=== PATIENT | female | born 1995 | race African-American/Black ===

== ENCOUNTER 2016-07-03 16:54 | Emergency (ER) ==
[2016-07-03 17:43] LABS: URINE SOURCE CLEAN CATCH
[2016-07-03 18:12] LABS: BILIRUBIN URINE NEGATIVE (NEGATIVE); BLOOD URINE NEGATIVE (NEGATIVE); CLARITY SL. CLOUDY (CLEAR); COLOR YELLOW; GLUCOSE URINE NEGATIVE (NEGATIVE); LEUKOCYTES URINE 2+ (NEGATIVE); NITRITE URINE NEGATIVE (NEGATIVE); PROTEIN URINE TRACE mg/dL (NEGATIVE); SP GRAVITY URINE 1.015; UROBILINOGEN URINE 1+(1 mg/dL)
[2016-07-03 18:32] LABS: URINE CULTURE PL NEEDED? YES; URINE EPITHELIAL CELLS >10 /HPF (<10); URINE WBC <10 /HPF (<10)
[2016-07-03 18:33] LABS: URINE CAST NONE SEEN /LPF; URINE CRYSTAL NONE SEEN /HPF
--- NOTE | 2016-07-03 19:46 | PROVIDER DOCUMENTATION ---
HPI-Female /OB/Breast - General Source: reports: patient - History of Present Illness-Female /OB Does patient report she is ?: Yes Location of complaint: reports: LLQ Radiation: reports: none Quality of Pain: reports: aching Severity in ED: reports: mild Onset/Duration: reports: last night Timing: reports: still present Context/Activities at Onset: reports: none Vaginal Symptoms: reports: no symptoms Vaginal Bleeding Amount: None Urinary Symptoms: reports: no symptoms Related Symptoms: reports: no symptoms Leakage of Fluid: none Associated Symptoms: reports: cough, nausea, vomiting, other (congestion) Similar Symptoms Previously?: No Recently seen or treated by another doctor?: No <Kaci Rubin - Last Filed: 07/03/16 20:47> <Katja Segura - Last Filed: 07/03/16 20:52> - General Chief Complaint: Nausea/Vomiting Stated Complaint: VOMITING/?? WEEKS PREG Time Seen by Provider: 07/03/16 17:59 Allergies/Adverse Reactions: Patient Allergies Allergy/AdvReac Type Severity Reaction Status Date / Time No Known Allergies Allergy Verified 07/03/16 17:29 - History of Present Illness-Female /OB Nature of Presenting Problem: 21 year old F presents to the ED with a cc of LLQ ABD pain that began last night. PT states that she has also has nausea and vomiting x1 month. PT is but does not know how far along. PT is also c/o cough and congestion x1 week. (Kaci Rubin) Review of Systems - Adult - REVIEW OF SYSTEMS - ADULT Constitutional: denies: chills, fever Eyes: reports: no symptoms reported Ears, Nose, Mouth & Throat: reports: sinus problem. denies: ear pain, throat pain Cardiovascular: denies: chest pain, palpitations Respiratory: reports: cough. denies: shortness of breath Gastrointestinal: reports: abdominal pain, nausea, vomiting Genitourinary: reports: no symptoms reported Musculoskeletal: reports: no symptoms reported Integumentary: reports: no symptoms reported Neurological: reports: no symptoms reported Psychiatric: reports: no symptoms reported Endocrine: reports: no symptoms reported Hematologic/Lymphatic: reports: no symptoms reported Allergic/Immunologic: reports: no symptoms reported All Other Systems: Reviewed and Negative <Kaci Rubin - Last Filed: 07/03/16 20:47> Past History - Adult - PAST MEDICAL HISTORY-ADULT Review of Records: reports: Nursing Assessment Review, Medications Reviewed Major Childhood Illnesses: reports: denies history - PRIOR SURGERIES/PROCEDURES Surgical/Procedure History: reports: none - PRIOR HOSPITALIZATIONS Prior Hospitalizations: reports: none - IMMUNIZATION STATUS Childhood Immunizations: UTD, See Nurse Assessment Flu Vaccine: UTD - FAMILY HISTORY Family History: reviewed, not pertinent <Kaci Rubin - Last Filed: 07/03/16 20:47> Physical Exam-General - PHYSICAL EXAM-ADULT Initial Vital Signs Reviewed: Yes - CONSTITUTIONAL General Appearance: appears well, alert, no apparent distress - EYES Eyes: PERRL/EOMI, pink conjunctivae - HEAD, EARS, NOSE, MOUTH & THROAT HENMT: normocephalic/atraumatic, moist mucous membranes, normal ENT inspection - NECK Neck: non-tender, full range of motion, supple - RESPIRATORY Respiratory: chest non-tender, lungs clear, normal breath sounds - CARDIOVASCULAR Cardiovascular: regular rate, rhythm, no edema - GASTROINTESTINAL (ABDOMEN) Abdominal Exam: soft, tenderness (LLQ). negative: distended, guarding, rigid, rebound, hernia, mass - MUSCULOSKELETAL Back Exam: normal inspection, no CVA tenderness, no vertebral tenderness Extremity: normal gait, normal inspection - SKIN Integumentary: normal color, normal turgor, warm/dry - NEUROLOGIC Neurologic: grossly normal, no motor/sensory deficits - PSYCHIATRIC Psych/Mental Status: normal thought content, normal thought process <Katja Segura - Last Filed: 07/03/16 20:52> Progress - ULTRASOUND (By Radiology) 1 US Study: Transvaginal Impression: Normal (FHR: 171 bpm. MA= 10 weeks 4 days. RHODA= January 25, 2017. Unremarakable maternal ovaries. Live IUP. Cervix closed. No complications identified.) <Kaci Rubin - Last Filed: 07/03/16 20:47> <Katja Segura - Last Filed: 07/03/16 20:52> - PLAN OF CARE/RESULTS Progress/Plan/Lab Results: Vital Signs Temp Pulse Resp BP Pulse Ox 07/03/16 17:30 97.0 F L 78 18 134/91 100 No Known Allergies Allergy (Verified 07/03/16 17:29) No Home Medications 07/03/16 Laboratory 07/03/16 07/03/16 17:34 17:34 Urine Source CLEAN CATCH Urine Color YELLOW Urine Clarity SL. CLOUDY A Urine pH 7.0 Ur Specific [place] 1.015 Urine Protein TRACE A Urine Ketones 2+(Moderate) A Urine Blood NEGATIVE Urine Nitrite NEGATIVE Urine Bilirubin NEGATIVE Urine Urobilinogen 1+(1 mg/dL) Urine Microscopic RBC Not Reportable Urine WBC 2+ A Urine Microscopic WBC <10 Ur Epithelial Cells >10 A Urine Crystals NONE SEEN Urine Bacteria 1+ Urine Casts NONE SEEN Urine Yeast NONE SEEN Urine Glucose NEGATIVE Urine Test POSITIVE Orders Category Date Time Status US OBS COMPLETE < 14 WKS [US] Stat Exams 07/03/16 19:12 Taken TEST-URINE [PREG] Stat Lab 07/03/16 17:[address] W/POSS RFLX CULT [URINALYSIS] Stat Lab 07/03/16 17:34 Completed URINE CULTURE [RM] Routine Lab 07/03/16 18:33 Ordered Nitrofurantoin [place]/Macrocryst [Macrobid] Med 07/03/16 20:50 Discontinued 100 mg PO NOW ONE Ondansetron Odt [Zofran Odt] Med 07/03/16 20:46 Discontinued 4 mg PO NOW ONE (Katja Segura) Departure <Kaci Rubin - Last Filed: 07/03/16 20:47> - Departure Time of Disposition Order: 20:51 Certified Medical Emergency: Emergent <Katja Segura - Last Filed: 07/03/16 20:52> - Departure DIAGNOSIS: IUP (intrauterine ), incidental, Hyperemesis gravidarum UTI (urinary tract infection) Qualifiers: Urinary tract infection type: acute cystitis Hematuria presence: without hematuria Qualified Code(s): N30.00 - Acute cystitis without hematuria Disposition: HOME 01 Condition: Good Prescriptions: Nitrofurantoin [place]/Macrocryst [Macrobid] 100 mg PO BID #14 capsule Promethazine [Phenergan] 25 mg PO Q6H PRN PRN #20 tablet PRN Reason: Nausea Ondansetron Odt [Zofran 4 mg Odt] 4 mg PO Q6H PRN PRN #15 tablet PRN Reason: Nausea Referrals: None,PCP [Primary Care Provider] - Rene Lyle MD [STAFF PHYSICIAN] - Attestation - Scribe Verification/Attestation Scribe:: Kaci Rubin Acting as Scribe for:: Katja Segura Scribe documention review:: This chart was documented by a scribe and accurately reflects the service the provider performed and the decisions made by the provider. <Kaci Rubin - Last Filed: 07/03/16 20:47> - Physician/ Mid-level Attestation Patient care was provided by Mid-level provider (COUNTER SUPERVISOR/PA):: Yes Mid-level provider:: Katja Segura Mid-level documentation review:: The Mid-level provider documentation, treatment plan and medical decision making was reviewed by the physician who agrees with all treatment and medical decision making by the MLP. <Katja Segura - Last Filed: 07/03/16 20:52> Physician Attestation - Physician Attestation I, the provider, attest to the following statement:: Katja Segura Physician documentation Attestation:: This documentation recorded by the scribe accurately reflects the service I personally performed and the decisions made by me. <Kaci Rubin - Last Filed: 07/03/16 20:47>
[2016-07-03] MEDS ORDERED: ZOFRAN ODT PO ONE (20:46)
[2016-07-03] MEDS ORDERED: MACROBID PO ONE (20:50)
[2016-07-03 20:59] VITALS: BP 145/76
--- NOTE | 2016-07-04 09:06 | Diag Imaging Result Document ---
PROCEDURE NAME: US OBS COMPLETE < 14 WKS - 07/03/2016 OBSTETRICAL ULTRASOUND: INDICATION: . Left lower quadrant pain. FINDINGS: A single viable intrauterine is identified with an estimated gestational age of 10 weeks 4 days and an estimated due date of January 25, 2017. heart rate is 171 beats per minute. The ovaries are unremarkable. No free fluid. The cervix is closed. Preliminary interpretation was given by the on-call radiologist. IMPRESSION: Single viable intrauterine with an estimated gestational age of 10 weeks 4 days. No complications identified.
== END 2016-07-03 21:08 | disposition home or self-care (01) ==
LOC: P.ED 16:54
DX: O23.11 Infections of bladder in pregnancy, first trimester (principal); N30.00 Acute cystitis without hematuria; O21.0 Mild hyperemesis gravidarum; O26.891 Other specified pregnancy related conditions, first trimester; R10.32 Left lower quadrant pain; R11.0 Nausea; R05 Cough; R09.81 Nasal congestion; R10.814 Left lower quadrant abdominal tenderness; Z3A.10 10 weeks gestation of pregnancy
CPT/HCPCS: 76801; 81001; 81025; 87088

== ENCOUNTER 2017-01-12 11:14 | Inpatient (IN) ==
[2017-01-12] MEDS ORDERED: PITOCIN 30 UNITS/LR 30 UNITS/500 ML IV.SOLN IV SCH (12:38)
[2017-01-12] MEDS ORDERED: PEPCID IV PRN (12:38)
[2017-01-12] MEDS ORDERED: STADOL IV PRN (12:38)
[2017-01-12] MEDS ORDERED: REGLAN PO ONE (12:38)
[2017-01-12] MEDS ORDERED: PEPCID PO ONE (12:38)
[2017-01-12] MEDS ORDERED: KEFZOL 1 GM/D5W 1 GM/50 ML IVPB IV PRN (12:38)
[2017-01-12] MEDS ORDERED: PEPCID PO PRN (12:38)
[2017-01-12] MEDS ORDERED: TYLENOL PO PRN (12:38)
[2017-01-12] MEDS ORDERED: LR 1,000 ML IV SCH (12:38)
[2017-01-12] MEDS ORDERED: ZOFRAN IV PRN (12:38)
[2017-01-12] MEDS ORDERED: SODIUM CHLORIDE 0.9% INJ SCH (12:45)
[2017-01-12] MEDS ORDERED: AMPICILLIN 2 GM/NS 2 GM/100 ML IVPB IV ONE (13:21)
[2017-01-12 14:13] LABS: BASO% 0.2 % (0.0-0.8); EOS# 0.06 X1000 (0.0-0.7); EOS% 0.6 % (0.0-10.0); HEMATOCRIT 35.5 % (37.0-47.0); HEMOGLOBIN 12.2 g/dL (12.0-16.0); IMM GRAN# 0.02 X1000 (0.0-0.04); IMM GRAN% 0.2 % (0.0-0.5); LYMPH# 2.28 X1000 (1.2-3.4); LYMPH% 22.8 % (20.5-51.1); MANUAL DIFF NEEDED? NO; MCH 30.6 PG (27-31); MCHC 34.4 g/dL (33-37); MONO# 0.68 X1000 (0.11-0.59); MONO% 6.8 % (1.7-9.3); MPV 13.2 FL (7.4-10.4); NEUT% 69.4 % (42.2-75.2); PLT 120 X1000 (130-400); RBC 3.99 XMIL (4.2-5.4)
[2017-01-12] MEDS ORDERED: FENTANYL-BUPIV-NS 2 MCG-0.1% 200 ML ONE (17:55)
[2017-01-12] MEDS ORDERED: MINERAL OIL TOP ONE (19:45)
[2017-01-12] MEDS ORDERED: XYLOCAINE-MPF 1% INJ ONE (19:46)
[2017-01-12] MEDS ORDERED: FENTANYL-BUPIV-NS 2 MCG-0.1% 200 ML EPIDURAL SCH (20:00)
[2017-01-12] MEDS ORDERED: AMPICILLIN 1 GM/NS 1 GM/50 ML IVPB IV SCH (21:00)
[2017-01-12] MEDS ORDERED: BOOSTRIX VACCINE IM ONE (21:27)
[2017-01-12] MEDS ORDERED: BENADRYL IV PRN (21:27)
[2017-01-12] MEDS ORDERED: CYTOTEC PO PRN (21:27)
[2017-01-12] MEDS ORDERED: MINERAL OIL PO PRN (21:27)
[2017-01-12] MEDS ORDERED: M-M-R II VACCINE SUBQ ONE (21:27)
[2017-01-12] MEDS ORDERED: XYLOCAINE-MPF 1% INJ PRN (21:27)
[2017-01-12] MEDS ORDERED: PITOCIN 20 UNITS/LR 20 UNITS/1,000 ML IV.SOLN IV SCH ×2 (21:27→22:00)
[2017-01-12] MEDS ORDERED: BENADRYL PO PRN (21:27)
[2017-01-12] MEDS ORDERED: PITOCIN 30 UNITS/LR 30 UNITS/500 ML IV.SOLN IV ONE (21:27)
[2017-01-12] MEDS ORDERED: HYDROXYZINE PO PRN (21:27)
[2017-01-12] MEDS ORDERED: PERI MEDS (DERMOPLAST/NUPERCAINAL/TUCKS) MISC PRN (21:27)
[2017-01-12] MEDS ORDERED: HYDROXYZINE IM PRN (21:27)
[2017-01-12] MEDS ORDERED: PITOCIN IM PRN (21:27)
[2017-01-12] MEDS: NORCO-10 PO PRN (21:41)
[2017-01-12] MEDS: MOTRIN PO PRN (21:41)
[2017-01-12] MEDS: PERICOLACE PO SCH (21:46)
[2017-01-12] MEDS ORDERED: PITOCIN 20 UNITS/LR 20 UNITS/1,000 ML IV.SOLN IV PRN (22:02)
[2017-01-12] MEDS: AMBIEN PO PRN (23:57)
[2017-01-13 05:44] LABS: MANUAL DIFF NEEDED? NO
[2017-01-13 05:56] LABS: BASO% 0.2 % (0.0-0.8); EOS# 0.05 X1000 (0.0-0.7); EOS% 0.4 % (0.0-10.0); HEMATOCRIT 33.9 % (37.0-47.0); HEMOGLOBIN 11.3 g/dL (12.0-16.0); IMM GRAN# 0.02 X1000 (0.0-0.04); IMM GRAN% 0.2 % (0.0-0.5); LYMPH% 19.9 % (20.5-51.1); MCH 29.8 PG (27-31); MCHC 33.3 g/dL (33-37); MCV 89.4 FL (81-99); MONO# 1.09 X1000 (0.11-0.59); MPV 12.3 FL (7.4-10.4); NEUT% 70.3 % (42.2-75.2); PLT 113 X1000 (130-400); RBC 3.79 XMIL (4.2-5.4)
[2017-01-13] MEDS: PRECARE PO SCH (08:54)
[2017-01-13] MEDS: MOTRIN PO PRN ×2 (08:56→17:25)
[2017-01-13] MEDS: NORCO-5 PO PRN ×3 (09:12→23:53)
--- NOTE | 2017-01-13 10:48 | OPERATIVE NOTE ---
PROCEDURE DATE: 01/12/2017 PREDELIVERY DIAGNOSIS: Intrauterine at 38 weeks, spontaneous rupture of membranes prolonged. POSTDELIVERY DIAGNOSIS: Intrauterine at 38 weeks, spontaneous rupture of membranes prolonged. PROCEDURE PERFORMED: Vaginal delivery. PHYSICIAN: Rene Alcaraz MD. ANESTHESIA: Epidural by Dr. Argueta. FINDINGS: Viable female infant. I do not have weight or Apgars at this time. Cord was 3 vessels. Placenta was spontaneous, intact but foul-smelling. Cultures done of the amniotic side. No lacerations or tears. ESTIMATED BLOOD LOSS: 100 mL. COUNTS: All counts were correct. DELIVERY SUMMARY: Please refer to Ms. Oropeza records. She is really a patient at the [facility] but switched to us after that clinic stopped delivering. She presented earlier today after stating she ruptured membranes at approximately 5 p.m. on the but did not come in because she thought she would just be sent home. She denies fever or chills. On admission, she was afebrile and white count was not elevated. However, she was started on antibiotics and Pitocin and received epidural anesthesia. She reached complete dilatation, began pushing. Soon after crowned at which point the bed was broken down, and she was prepped and draped. With continued pushing, she delivered a viable female infant, occiput anterior, over an intact perineum. Shoulders and rest of the body followed easily. The was placed on mother's abdomen. Cord was doubly clamped and cut, and care of infant taken over by nursery personnel. Cord blood was obtained. Then gentle traction on the cord resulted in almost immediate delivery of the placenta. It was very foul-smelling when delivered so cultures were done. Inspection of the perineum and vagina did not reveal any lacerations or tears. There were no clots or foreign material. All counts were correct. Estimated blood loss was 100 mL. Routine . We will watch for fever but as patient has been afebrile with no white count, we will not continue antibiotics. cc: Rene Alcaraz MD
[2017-01-13] MEDS: AMBIEN PO PRN (20:45)
[2017-01-13] MEDS: PERICOLACE PO SCH (20:45)
[2017-01-14] MEDS: MOTRIN PO PRN ×2 (01:16→09:14)
[2017-01-14] MEDS: PRECARE PO SCH (09:12)
[2017-01-14] MEDS: NORCO-10 PO PRN (09:15)
[2017-01-14] MEDS ORDERED: PNEUMOVAX 23 IM ONE (10:30)
[2017-01-14 12:01] VITALS: BP 97/78
== END 2017-01-14 13:07 | disposition home or self-care (01) ==
LOC: P.OPLD 11:14 → P.LD 11:16 → P.WC 23:27
PROVIDERS: ADMIT Obstetrics & Gynecology; ATTEND Obstetrics & Gynecology